=== PATIENT | female | born 1965 | race Two or more races ===

== ENCOUNTER 2020-01-05 21:07 | Inpatient (IN) | payer MEDICAID ==
[~2020-01-05] VITALS: Ht 162.6 cm; Wt 88.9 kg
[2020-01-05] MEDS ORDERED: SODIUM CHLORIDE 0.9% 1,000 ML IV ONE (23:23)
[2020-01-05] MEDS ORDERED: ONDANSETRON HCL 4MG/2ML INJ IV STA (23:23)
[2020-01-05] MEDS ORDERED: CEFTRIAXONE 1 G PREMIX 50 ML IV ONE (23:30)
[2020-01-05] MEDS ORDERED: AZITHROMYCIN 500 MG in DEXT 5% WATER 250 ML IV ONE (23:30)
[2020-01-06 00:36] LABS: BASOPHILS % 0.7 % (0.0-2.0); EOSINOPHILS % 0.1 % (0.0-5.0); HEMATOCRIT. 47.1 % (36.0-48.0); HEMOGLOBIN. 15.5 g/dL (12.0-16.0); LYMPHOCYTES % 28.2 % (20.0-50.0); MEAN CORPUSCULAR HEMOGLOBIN 28.7 pg (28.0-32.0); MEAN CORPUSCULAR VOLUME 87.2 fL (81.0-99.0); MONOCYTES % 6.6 % (2.0-8.0); NEUTROPHILS % 64.4 % (40.0-76.0); PLATELET 343 x1000/uL (130-400); RED CELL DISTRIBUTION WIDTH 15.3 % (11.6-14.6)
[2020-01-06 00:37] LABS: CHLORIDE 102 mEq/L (98-107)
[2020-01-06 01:35] LABS: CLARITY URINE CLEAR (CLEAR); COLOR URINE YELLOW (YELLOW); KETONES URINE 1+ (NEGATIVE); LEUKOCYTE ESTERASE URINE NEGATIVE (NEGATIVE); NITRITE URINE NEGATIVE (NEGATIVE); OCCULT BLOOD URINE NEGATIVE (NEGATIVE); PH URINE 5.5 (4.5-8.0); PROTEIN URINE NEGATIVE (NEGATIVE)
[2020-01-06 08:36] VITALS: BP 152/70
[2020-01-06 08:37] VITALS: BP 152/70
[2020-01-06] MEDS ORDERED: FENO134C PO (10:11)
[2020-01-06] MEDS ORDERED: METF-416 PO (10:11)
[2020-01-06] MEDS ORDERED: LISI40TA4 PO (10:11)
[2020-01-06] MEDS ORDERED: ASPI-1158 PO (10:11)
[2020-01-06] MEDS ORDERED: AMLO5TAB4 PO (10:11)
[2020-01-06] MEDS ORDERED: LEVO750T46 PO (10:11)
[2020-01-06] MEDS ORDERED: EMPA10TA PO (10:11)
[2020-01-06] MEDS ORDERED: GLIM4TAB36 PO (10:11)
[2020-01-06] MEDS ORDERED: FENO130C13 PO (10:11)
[2020-01-06] MEDS ORDERED: DEXTROSE 50% WATER 50ML SYRINGE IV PRN ×2 (11:00)
[2020-01-06] MEDS: BLOOD SUGAR DIAGNOSTIC STRIP TEST SCH ×3 (12:06→21:00)
[2020-01-06] MEDS: INSULIN LISPRO 100 UNITS/ML SUBCUT SCH ×3 (12:10→21:15)
[2020-01-06 12:15] VITALS: BP 154/68
[2020-01-06 16:15] VITALS: BP 166/78
[2020-01-06] MEDS: ASPIRIN 81MG EC TABLET PO SCH (18:59)
[2020-01-06] MEDS: AMLODIPINE 5MG TABLET PO SCH (18:59)
[2020-01-06 20:00] VITALS: BP 126/70
[2020-01-06] MEDS: FENOFIBRATE NANOCRYSTALLIZED 145MG TABLET PO SCH (20:52)
[2020-01-06] MEDS: LISINOPRIL 40MG TABLET PO SCH (21:06)
[2020-01-07] VITALS (7 sets, daily range): BP systolic 128–153; BP diastolic 58–74
[2020-01-07] MEDS: INSULIN LISPRO 100 UNITS/ML SUBCUT SCH ×3 (06:10→17:12)
[2020-01-07] MEDS: BLOOD SUGAR DIAGNOSTIC STRIP TEST SCH ×4 (06:10→21:00)
[2020-01-07] MEDS: AMLODIPINE 5MG TABLET PO SCH (08:22)
[2020-01-07] MEDS: LISINOPRIL 40MG TABLET PO SCH (08:23)
[2020-01-07] MEDS: FENOFIBRATE NANOCRYSTALLIZED 145MG TABLET PO SCH (08:23)
[2020-01-07] MEDS: ASPIRIN 81MG EC TABLET PO SCH (08:23)
[2020-01-07 09:39] LABS: BASOPHILS % 0.8 % (0.0-2.0); EOSINOPHILS % 1.1 % (0.0-5.0); HEMATOCRIT. 43.2 % (36.0-48.0); HEMOGLOBIN. 14.4 g/dL (12.0-16.0); LYMPHOCYTES % 30.8 % (20.0-50.0); MEAN CORPUSCULAR HEMOGLOBIN 28.8 pg (28.0-32.0); MEAN CORPUSCULAR VOLUME 86.1 fL (81.0-99.0); MEAN PLATELET VOLUME 8.3 fl (7.4-10.4); MONOCYTES % 6.1 % (2.0-8.0); NEUTROPHILS % 61.2 % (40.0-76.0); PLATELET 401 x1000/uL (130-400); RED BLOOD CELL COUNT 5.01 mill/uL (4.2-5.4); RED CELL DISTRIBUTION WIDTH 14.8 % (11.6-14.6)
[2020-01-07 09:58] LABS: CHLORIDE 103 mEq/L (98-107)
[2020-01-07 10:06] LABS: LDL CHOLESTEROL 90 mg/dL (5-100)
[2020-01-07 10:09] LABS: HDL CHOLESTEROL 37 mg/dL (40-59)
[2020-01-07] MEDS: ACETAMINOPHEN 325MG TABLET PO PRN (13:14)
[2020-01-08] VITALS: BP 142/59
[2020-01-08] MEDS: HYDROXYCHLOROQUINE SULFATE 200MG TABLET PO SCH ×3 (00:08→20:46)
[2020-01-08] MEDS: INSULIN LISPRO 100 UNITS/ML SUBCUT SCH ×5 (00:33→21:37)
[2020-01-08 04:00] VITALS: BP 138/60
[2020-01-08] MEDS: BLOOD SUGAR DIAGNOSTIC STRIP TEST SCH ×4 (06:16→21:37)
[2020-01-08 08:00] VITALS: BP 131/65
[2020-01-08] MEDS: ASPIRIN 81MG EC TABLET PO SCH (09:53)
[2020-01-08] MEDS: LISINOPRIL 40MG TABLET PO SCH (09:53)
[2020-01-08] MEDS: AMLODIPINE 5MG TABLET PO SCH (09:54)
[2020-01-08] MEDS: FENOFIBRATE NANOCRYSTALLIZED 145MG TABLET PO SCH (09:54)
[2020-01-08 11:02] LABS: BASOPHILS % 0.6 % (0.0-2.0); EOSINOPHILS % 1.5 % (0.0-5.0); HEMATOCRIT. 43.5 % (36.0-48.0); HEMOGLOBIN. 14.8 g/dL (12.0-16.0); LYMPHOCYTES % 27.6 % (20.0-50.0); MEAN CORPUSCULAR HEMOGLOBIN 29.3 pg (28.0-32.0); MEAN CORPUSCULAR VOLUME 86.4 fL (81.0-99.0); MEAN PLATELET VOLUME 8.3 fl (7.4-10.4); MONOCYTES % 5.9 % (2.0-8.0); NEUTROPHILS % 64.4 % (40.0-76.0); PLATELET 435 x1000/uL (130-400); RED BLOOD CELL COUNT 5.04 mill/uL (4.2-5.4); RED CELL DISTRIBUTION WIDTH 14.9 % (11.6-14.6)
[2020-01-08 11:10] LABS: CHLORIDE 104 mEq/L (98-107)
[2020-01-08 12:00] VITALS: BP 136/71
[2020-01-08 16:00] VITALS: BP 146/85
[2020-01-08] MEDS ORDERED: AZITHROMYCIN 500 MG TABLET PO NR (18:00)
[2020-01-08] MEDS: ZINC SULFATE 220 MG ( 50 ) CAPSULE PO SCH (18:59)
[2020-01-08 20:00] VITALS: BP 130/82
[2020-01-08] MEDS: ASCORBIC ACID 500 MG TABLET PO SCH (20:46)
[2020-01-09] VITALS: BP 142/76
[2020-01-09 04:00] VITALS: BP 139/74
[2020-01-09] MEDS: METFORMIN HCL 500MG TABLET PO SCH (06:40)
[2020-01-09] MEDS: GLIMEPIRIDE 2MG TABLET PO SCH (06:40)
[2020-01-09] MEDS: BLOOD SUGAR DIAGNOSTIC STRIP TEST SCH ×4 (06:51→21:00)
[2020-01-09] MEDS: INSULIN LISPRO 100 UNITS/ML SUBCUT SCH ×4 (07:22→22:19)
[2020-01-09 08:00] VITALS: BP 146/81
[2020-01-09] MEDS: ZINC SULFATE 220 MG ( 50 ) CAPSULE PO SCH (08:41)
[2020-01-09] MEDS: LISINOPRIL 40MG TABLET PO SCH (08:41)
[2020-01-09] MEDS: FENOFIBRATE NANOCRYSTALLIZED 145MG TABLET PO SCH (08:41)
[2020-01-09] MEDS: ASPIRIN 81MG EC TABLET PO SCH (08:41)
[2020-01-09] MEDS: AMLODIPINE 5MG TABLET PO SCH (08:41)
[2020-01-09] MEDS: ASCORBIC ACID 500 MG TABLET PO SCH (08:41)
[2020-01-09] MEDS: HYDROXYCHLOROQUINE SULFATE 200MG TABLET PO SCH ×2 (08:45→22:20)
[2020-01-09 12:00] VITALS: BP 100/65
[2020-01-09 16:00] VITALS: BP 121/71
[2020-01-09] MEDS: AZITHROMYCIN 500 MG TABLET PO SCH (16:37)
[2020-01-09 20:00] VITALS: BP 130/71
[2020-01-10] VITALS: BP 152/80
[2020-01-10 04:00] VITALS: BP 137/67
[2020-01-10] MEDS: BLOOD SUGAR DIAGNOSTIC STRIP TEST SCH ×4 (06:46→20:42)
[2020-01-10] MEDS: METFORMIN HCL 500MG TABLET PO SCH (06:51)
[2020-01-10] MEDS: INSULIN LISPRO 100 UNITS/ML SUBCUT SCH ×4 (06:52→21:15)
[2020-01-10] MEDS: GLIMEPIRIDE 2MG TABLET PO SCH (06:52)
[2020-01-10 06:56] LABS: CHLORIDE 103 mEq/L (98-107)
[2020-01-10 07:02] LABS: BASOPHILS % 0.6 % (0.0-2.0); EOSINOPHILS % 3.3 % (0.0-5.0); HEMATOCRIT. 44.9 % (36.0-48.0); HEMOGLOBIN. 14.9 g/dL (12.0-16.0); LYMPHOCYTES % 45.4 % (20.0-50.0); MEAN CORPUSCULAR HEMOGLOBIN 28.6 pg (28.0-32.0); MEAN CORPUSCULAR VOLUME 86.4 fL (81.0-99.0); MEAN PLATELET VOLUME 8.3 fl (7.4-10.4); NEUTROPHILS % 43.7 % (40.0-76.0); PLATELET 491 x1000/uL (130-400); RED CELL DISTRIBUTION WIDTH 14.9 % (11.6-14.6)
[2020-01-10 08:00] VITALS: BP 131/74
[2020-01-10] MEDS: ASCORBIC ACID 500 MG TABLET PO SCH (09:30)
[2020-01-10] MEDS: ZINC SULFATE 220 MG ( 50 ) CAPSULE PO SCH (09:30)
[2020-01-10] MEDS: HYDROXYCHLOROQUINE SULFATE 200MG TABLET PO SCH ×2 (09:30→20:24)
[2020-01-10] MEDS: AMLODIPINE 5MG TABLET PO SCH (09:30)
[2020-01-10] MEDS: FENOFIBRATE NANOCRYSTALLIZED 145MG TABLET PO SCH (09:30)
[2020-01-10] MEDS: LISINOPRIL 40MG TABLET PO SCH (09:30)
[2020-01-10] MEDS: ASPIRIN 81MG EC TABLET PO SCH (09:30)
[2020-01-10 12:00] VITALS: BP 121/73
[2020-01-10 16:00] VITALS: BP 128/71
[2020-01-10] MEDS: AZITHROMYCIN 500 MG TABLET PO SCH (17:39)
[2020-01-10 20:00] VITALS: BP 135/76
[2020-01-11] VITALS: BP 141/73
[2020-01-11 04:00] VITALS: BP 136/71
[2020-01-11] MEDS: METFORMIN HCL 500MG TABLET PO SCH (06:08)
[2020-01-11] MEDS: BLOOD SUGAR DIAGNOSTIC STRIP TEST SCH ×4 (06:08→21:13)
[2020-01-11] MEDS: GLIMEPIRIDE 2MG TABLET PO SCH (06:08)
[2020-01-11 08:00] VITALS: BP 134/80
[2020-01-11] MEDS: INSULIN LISPRO 100 UNITS/ML SUBCUT SCH ×4 (08:10→21:27)
[2020-01-11] MEDS: HYDROXYCHLOROQUINE SULFATE 200MG TABLET PO SCH ×2 (08:11→21:13)
[2020-01-11] MEDS: AMLODIPINE 5MG TABLET PO SCH (08:11)
[2020-01-11] MEDS: ASPIRIN 81MG EC TABLET PO SCH (08:11)
[2020-01-11] MEDS: FENOFIBRATE NANOCRYSTALLIZED 145MG TABLET PO SCH (08:11)
[2020-01-11] MEDS: LISINOPRIL 40MG TABLET PO SCH (08:11)
[2020-01-11] MEDS: ASCORBIC ACID 500 MG TABLET PO SCH (08:12)
[2020-01-11] MEDS: ZINC SULFATE 220 MG ( 50 ) CAPSULE PO SCH (08:12)
[2020-01-11 12:00] VITALS: BP 137/86
[2020-01-11 16:00] VITALS: BP 98/54
[2020-01-11] MEDS: AZITHROMYCIN 500 MG TABLET PO SCH (17:53)
[2020-01-11 20:00] VITALS: BP 130/69
[2020-01-11] MEDS: ACETAMINOPHEN 325MG TABLET PO PRN (21:13)
[2020-01-12] VITALS: BP 138/73
[2020-01-12 04:00] VITALS: BP 117/63
[2020-01-12] MEDS: METFORMIN HCL 500MG TABLET PO SCH (06:00)
[2020-01-12] MEDS: BLOOD SUGAR DIAGNOSTIC STRIP TEST SCH ×4 (06:00→22:35)
[2020-01-12] MEDS: GLIMEPIRIDE 2MG TABLET PO SCH (06:00)
[2020-01-12] MEDS: INSULIN LISPRO 100 UNITS/ML SUBCUT SCH ×4 (07:29→22:35)
[2020-01-12 08:00] VITALS: BP 146/77
[2020-01-12 08:20] LABS: HEMATOCRIT. 42.4 % (36.0-48.0); HEMOGLOBIN. 14.3 g/dL (12.0-16.0); MEAN PLATELET VOLUME 8.4 fl (7.4-10.4); PLATELET 510 x1000/uL (130-400); RED BLOOD CELL COUNT 4.94 mill/uL (4.2-5.4); RED CELL DISTRIBUTION WIDTH 14.4 % (11.6-14.6)
[2020-01-12 08:34] LABS: CHLORIDE 104 mEq/L (98-107)
[2020-01-12] MEDS: HYDROXYCHLOROQUINE SULFATE 200MG TABLET PO SCH ×2 (09:00→22:35)
[2020-01-12] MEDS: ASCORBIC ACID 500 MG TABLET PO SCH (09:04)
[2020-01-12] MEDS: ZINC SULFATE 220 MG ( 50 ) CAPSULE PO SCH (09:04)
[2020-01-12] MEDS: AMLODIPINE 5MG TABLET PO SCH (09:05)
[2020-01-12] MEDS: ASPIRIN 81MG EC TABLET PO SCH (09:05)
[2020-01-12] MEDS: FENOFIBRATE NANOCRYSTALLIZED 145MG TABLET PO SCH (09:05)
[2020-01-12] MEDS: LISINOPRIL 40MG TABLET PO SCH (09:05)
[2020-01-12 12:00] VITALS: BP 111/63
[2020-01-12 16:00] VITALS: BP 130/73
[2020-01-12] MEDS: AZITHROMYCIN 500 MG TABLET PO SCH (17:46)
[2020-01-12 20:00] VITALS: BP 131/71
[2020-01-12 23:15] LABS: PLATELET ESTIMATE INCREASED
[2020-01-13 04:00] VITALS: BP 107/61
[2020-01-13] MEDS: METFORMIN HCL 500MG TABLET PO SCH (06:05)
[2020-01-13] MEDS: GLIMEPIRIDE 2MG TABLET PO SCH ×2 (06:40→07:42)
[2020-01-13] MEDS: BLOOD SUGAR DIAGNOSTIC STRIP TEST SCH ×4 (07:27→21:00)
[2020-01-13 08:00] VITALS: BP 121/66
[2020-01-13 09:38] LABS: HEMATOCRIT. 44.9 % (36.0-48.0); HEMOGLOBIN. 14.8 g/dL (12.0-16.0); MEAN CORPUSCULAR HEMOGLOBIN 28.6 pg (28.0-32.0); MEAN CORPUSCULAR VOLUME 86.9 fL (81.0-99.0); MEAN PLATELET VOLUME 8.7 fl (7.4-10.4); PLATELET 493 x1000/uL (130-400); RED BLOOD CELL COUNT 5.17 mill/uL (4.2-5.4); RED CELL DISTRIBUTION WIDTH 14.8 % (11.6-14.6)
[2020-01-13] MEDS: ASCORBIC ACID 500 MG TABLET PO SCH (09:42)
[2020-01-13] MEDS: ZINC SULFATE 220 MG ( 50 ) CAPSULE PO SCH (09:42)
[2020-01-13] MEDS: ASPIRIN 81MG EC TABLET PO SCH (09:42)
[2020-01-13] MEDS: FENOFIBRATE NANOCRYSTALLIZED 145MG TABLET PO SCH (09:42)
[2020-01-13] MEDS: AMLODIPINE 5MG TABLET PO SCH (09:42)
[2020-01-13] MEDS: LISINOPRIL 40MG TABLET PO SCH (09:43)
[2020-01-13] MEDS: INSULIN LISPRO 100 UNITS/ML SUBCUT SCH ×4 (09:51→22:41)
[2020-01-13 09:57] LABS: CHLORIDE 105 mEq/L (98-107)
[2020-01-13 10:48] LABS: PLATELET ESTIMATE INCREASED
[2020-01-13 12:00] VITALS: BP 112/62
[2020-01-13 16:00] VITALS: BP 106/68
[2020-01-13 20:00] VITALS: BP 107/78
[2020-01-14] VITALS: BP 115/62
[2020-01-14 04:00] VITALS: BP 108/66
[2020-01-14] MEDS: BLOOD SUGAR DIAGNOSTIC STRIP TEST SCH ×4 (06:42→21:41)
[2020-01-14] MEDS: METFORMIN HCL 500MG TABLET PO SCH (06:52)
[2020-01-14] MEDS: INSULIN LISPRO 100 UNITS/ML SUBCUT SCH ×4 (06:54→21:49)
[2020-01-14 08:00] VITALS: BP 157/73
[2020-01-14] MEDS: ZINC SULFATE 220 MG ( 50 ) CAPSULE PO SCH (08:20)
[2020-01-14] MEDS: LISINOPRIL 40MG TABLET PO SCH (08:20)
[2020-01-14] MEDS: ASCORBIC ACID 500 MG TABLET PO SCH (08:20)
[2020-01-14] MEDS: AMLODIPINE 5MG TABLET PO SCH (08:20)
[2020-01-14] MEDS: FENOFIBRATE NANOCRYSTALLIZED 145MG TABLET PO SCH (08:20)
[2020-01-14] MEDS: ASPIRIN 81MG EC TABLET PO SCH (08:20)
[2020-01-14 12:00] VITALS: BP 103/64
[2020-01-14 16:00] VITALS: BP 110/65
[2020-01-14] MEDS ORDERED: ASCO500T20 PO (16:28)
[2020-01-14] MEDS ORDERED: ZINC220C2 PO (16:28)
[2020-01-14 20:00] VITALS: BP 106/74
[2020-01-15] VITALS (7 sets, daily range): BP systolic 113–142; BP diastolic 65–81
[2020-01-15] MEDS: BLOOD SUGAR DIAGNOSTIC STRIP TEST SCH ×3 (06:18→16:54)
[2020-01-15] MEDS: GLIMEPIRIDE 2MG TABLET PO SCH (06:39)
[2020-01-15] MEDS: INSULIN LISPRO 100 UNITS/ML SUBCUT SCH ×3 (06:39→17:53)
[2020-01-15] MEDS: METFORMIN HCL 500MG TABLET PO SCH (06:39)
[2020-01-15] MEDS: ASPIRIN 81MG EC TABLET PO SCH (10:14)
[2020-01-15] MEDS: ZINC SULFATE 220 MG ( 50 ) CAPSULE PO SCH (10:14)
[2020-01-15] MEDS: FENOFIBRATE NANOCRYSTALLIZED 145MG TABLET PO SCH (10:15)
[2020-01-15] MEDS: ASCORBIC ACID 500 MG TABLET PO SCH (10:15)
[2020-01-15] MEDS: AMLODIPINE 5MG TABLET PO SCH (10:40)
[2020-01-15] MEDS: LISINOPRIL 40MG TABLET PO SCH (10:40)
== END 2020-01-15 21:15 | disposition home or self-care (01) | DRG 720 ==
LOC: ER 22:00 → 7EST 01-06 00:35 → EDBEDREQ 01-06 00:37 → EDBEDREQDT 01-06 00:37 → EDBEDREQSVC 01-06 00:37 → EDBEDREQTM 01-06 00:37 → ENRESERV 01-06 07:31
PROVIDERS: ADMIT Internal Medicine; ATTEND Internal Medicine
DX: A41.89 Other specified sepsis (principal); U07.1 COVID-19; J96.00 Acute respiratory failure, unspecified whether with hypoxia or hypercapnia; J12.89 Other viral pneumonia; E11.9 Type 2 diabetes mellitus without complications; E78.00 Pure hypercholesterolemia, unspecified; E78.5 Hyperlipidemia, unspecified; I10 Essential (primary) hypertension; R81 Glycosuria; N20.0 Calculus of kidney; R82.4 Acetonuria; J40 Bronchitis, not specified as acute or chronic; Z78.9 Other specified health status; Z79.84 Long term (current) use of oral hypoglycemic drugs; Z87.442 Personal history of urinary calculi; Z87.891 Personal history of nicotine dependence
CPT/HCPCS: 36415; 71045; 80048; 80053; 80061; 81003; 82728; 82962; 83036; 83605; 83615; 83880; 84145; 84484; 85025; 86140; 87635; 87804; 93005; 96365; 96366; 96368; 96375; 99291; J0456; J0696; J1815; J2405; J7030; J7060

== ENCOUNTER 2020-02-08 14:21 | Emergency (ER) | payer MEDICAID ==
[~2020-02-08] VITALS: Ht 165.1 cm; Wt 99.8 kg
[~2020-02-08 14:21] MED LIST: AMLO5TAB4 PO; ASCO500T20 PO; ASPI-1158 PO; EMPA10TA PO; FENO134C PO; GLIM4TAB36 PO; LISI40TA4 PO; METF-416 PO; ZINC220C2 PO
[2020-02-08 15:44] VITALS: BP 140/73
== END 2020-02-08 15:46 | disposition home or self-care (01) ==
LOC: ER 14:21
DX: B97.29 Other coronavirus as the cause of diseases classified elsewhere (principal); R05 Cough; E11.9 Type 2 diabetes mellitus without complications; E78.00 Pure hypercholesterolemia, unspecified; I10 Essential (primary) hypertension; Z79.82 Long term (current) use of aspirin; Z79.899 Other long term (current) drug therapy
CPT/HCPCS: 71045; 99283

== ENCOUNTER 2021-11-10 23:48 | Emergency (ER) | payer MEDICAID ==
[~2021-11-10] VITALS: Ht 162.6 cm; Wt 91.0 kg
[~2021-11-10 23:48] MED LIST changes: -ASPI-1158 PO; +ASPI-1406 PO; +LISI40TA13 PO; -LISI40TA4 PO
[2021-11-11] MEDS ORDERED: OXYMETAZOLINE HCL NASAL SPRAY 15ML BOTHNSTRLS ONE (00:15)
[2021-11-11 01:23] VITALS: BP 114/60
== END 2021-11-11 01:24 | disposition home or self-care (01) ==
LOC: ER 23:48
DX: R04.0 Epistaxis (principal); E11.9 Type 2 diabetes mellitus without complications; I10 Essential (primary) hypertension; Z79.82 Long term (current) use of aspirin
CPT/HCPCS: 99283

== ENCOUNTER 2022-08-21 23:38 | Inpatient (IN) | payer MEDICAID ==
[~2022-08-21] VITALS: Ht 198.1 cm; Wt 94.3 kg
[~2022-08-21 23:38] MED LIST changes: -FENO134C PO; +FENO134C21 PO
[2022-08-22] VITALS (91 sets, daily range): BP systolic 80–157; BP diastolic 33–123
[2022-08-22] MEDS ORDERED: ONDANSETRON HCL 4MG/2ML INJ IV STA ×2 (00:06→01:21)
[2022-08-22] MEDS ORDERED: INSULIN REGULAR (HUMULIN R) 300UNITS/3ML VIAL SUBCUT ONE (00:15)
[2022-08-22] MEDS ORDERED: SODIUM CHLORIDE 0.9% 1,000 ML IV ONE ×3 (00:15→02:15)
[2022-08-22] MEDS ORDERED: VANCOMYCIN 1G PREMIX 200 ML IV ONE (00:15)
[2022-08-22] MEDS ORDERED: PIPERACILLIN/TAZ 3.375G PREMIX 50 ML IV ONE (00:15)
[2022-08-22 00:33] LABS: HEMATOCRIT. 44.2 % (36.0-48.0); HEMOGLOBIN. 13.4 g/dL (12.0-16.0); MEAN CORPUSCULAR HEMOGLOBIN 28.4 pg (28.0-32.0); MEAN CORPUSCULAR VOLUME 93.9 fL (81.0-99.0); MEAN PLATELET VOLUME 9.4 fl (7.4-10.4); PLATELET 407 x1000/uL (130-400); RED BLOOD CELL COUNT 4.71 mill/uL (4.2-5.4); RED CELL DISTRIBUTION WIDTH 16.6 % (11.6-14.6)
[2022-08-22 00:40] LABS: CHLORIDE 95 mEq/L (98-107)
[2022-08-22 00:42] LABS: INR 1.1; PROTHROMBIN TIME 11.4 sec (9.6-11.0)
[2022-08-22] MEDS ORDERED: VANCOMYCIN 1,000 MG in DEXT 5% WATER 250 ML IV NR ×2 (00:45→20:00)
[2022-08-22 01:14] LABS: ETHANOL BLOOD < 10 mg/dL
[2022-08-22] MEDS ORDERED: KCL 20MEQ/100ML PREMIX 100 ML IV ONE (01:30)
[2022-08-22] MEDS ORDERED: INSULIN REGULAR (DRIP) 100 UNITS in SODIUM CHLORIDE 0.9% 100 ML IV ONE (01:30)
[2022-08-22] MEDS ORDERED: POTASSIUM CHLORIDE 20MEQ TABLET SR PO ONE (01:30)
[2022-08-22 01:35] LABS: BETA HYDROXYBUTYRATE 14.3 mMol/L (0.0-0.3)
[2022-08-22 01:37] LABS: CLARITY URINE CLEAR (CLEAR); COLOR URINE YELLOW (YELLOW); KETONES URINE 4+ (NEGATIVE); LEUKOCYTE ESTERASE URINE NEGATIVE (NEGATIVE); NITRITE URINE NEGATIVE (NEGATIVE); OCCULT BLOOD URINE 2+ (NEGATIVE); PROTEIN URINE 2+ (NEGATIVE); SPECIFIC GRAVITY URINE 1.026 (1.005-1.030); UROBILINOGEN URINE 0.2 E.U./dL (0.2-1.0)
[2022-08-22 02:08] LABS: *AMPHETAMINES SCREEN URINE NEGATIVE (NEGATIVE); *BARBITURATES SCREEN URINE NEGATIVE (NEGATIVE); *BENZODIAZEPINES SCREEN URINE NEGATIVE (NEGATIVE); *COCAINE SCREEN URINE NEGATIVE (NEGATIVE); CANNABINOID URINE SCREEN NEGATIVE (NEGATIVE); METHADONE URINE SCREEN NEGATIVE (NEGATIVE); OPIATES URINE SCREEN NEGATIVE (NEGATIVE); PHENCYCLIDINE URINE SCREEN NEGATIVE (NEGATIVE)
[2022-08-22 02:17] LABS: BG BASE EXCESS -26.4 mmol/L (-2.0-2.0); BG CARBOXYHEMOGLOBIN 0.2 % (0.5-1.5); BG DEOXYHEMOGLOBIN 7.6 % (0.0-5.0); BG FRACTION INSPIRED OXYGEN 60; BG HCO3 ACT 5.4 mmol/L (22.0-26.0); BG METHEMOGLOBIN 0.3 % (0.0-1.5); BG OXYGEN SATURATION 92.4 % (92.0-98.5); BG OXYHEMOGLOBIN 91.9 % (94.0-97.0); BG PCO2 27.2 mmHg (35.0-45.0); BG PH 6.914 (7.350-7.450); BG PO2 81.2 mmHg (75.0-100.0); BG SAMPLE SITE RIGHT RADIAL; BG TOTAL HEMOGLOBIN 13.5 g/dL (12.0-18.0); BG VENT MODE MASK - SIMPLE
[2022-08-22 02:56] LABS: CHLORIDE 102 mEq/L (98-107)
[2022-08-22] MEDS ORDERED: DEXTROSE 50% WATER 50ML SYRINGE IV PRN ×3 (04:45→22:45)
[2022-08-22] MEDS ORDERED: INSULIN REGULAR (DRIP) 100 UNITS in SODIUM CHLORIDE 0.9% 100 ML IV NR (04:45)
[2022-08-22] MEDS ORDERED: BLOOD SUGAR DIAGNOSTIC STRIP TEST SCH (04:45)
[2022-08-22] MEDS ORDERED: SODIUM BICARBONATE 8.4% 1 MEQ/ML 50ML SYR IV NR ×2 (04:45→09:30)
[2022-08-22] MEDS ORDERED: NOREPINEPHRINE 8MG/250ML PMX 250 ML IV PRN (04:45)
[2022-08-22] MEDS: INSULIN REGULAR 100U/100ML PMX 100 ML IV SCH ×2 (05:15→08:45)
[2022-08-22 05:23] LABS: PLATELET ESTIMATE NORMAL
[2022-08-22] MEDS: BLOOD SUGAR DIAGNOSTIC STRIP TEST SCH ×19 (05:31→23:24)
[2022-08-22] MEDS ORDERED: INSULIN REGULAR (DRIP) 100 UNITS in SODIUM CHLORIDE 0.9% 99 ML IV SCH (06:00)
[2022-08-22] MEDS: NOREPINEPHRINE 8 MG in DEXTROSE 5% WATER 250 ML IV PRN ×2 (07:48→12:23)
[2022-08-22 08:48] LABS: BG BASE EXCESS -16.1 mmol/L (-2.0-2.0); BG CARBOXYHEMOGLOBIN 0.7 % (0.5-1.5); BG DEOXYHEMOGLOBIN 5.9 % (0.0-5.0); BG FRACTION INSPIRED OXYGEN 100; BG HCO3 ACT 11.1 mmol/L (22.0-26.0); BG METHEMOGLOBIN 0.1 % (0.0-1.5); BG OXYGEN SATURATION 94.1 % (92.0-98.5); BG OXYHEMOGLOBIN 93.3 % (94.0-97.0); BG PCO2 31.2 mmHg (35.0-45.0); BG PH 7.169 (7.350-7.450); BG PO2 67.5 mmHg (75.0-100.0); BG SAMPLE SITE RIGHT RADIAL; BG TOTAL HEMOGLOBIN 14.8 g/dL (12.0-18.0); BG VENT MODE MASK - NRB
[2022-08-22] MEDS ORDERED: PIOG15TA66 PO (09:40)
[2022-08-22] MEDS ORDERED: ATEN-42 PO (09:40)
[2022-08-22] MEDS ORDERED: EMPA10TA PO (09:40)
[2022-08-22] MEDS ORDERED: GABA800T97 PO (09:40)
[2022-08-22] MEDS ORDERED: MAGN500C4 PO (09:40)
[2022-08-22] MEDS ORDERED: METF-416 PO (09:40)
[2022-08-22] MEDS ORDERED: ATOR40TA70 MT (09:40)
[2022-08-22] MEDS ORDERED: ONDANSETRON HCL 4MG/2ML INJ IV PRN (10:00)
[2022-08-22] MEDS ORDERED: SODIUM BICARBONATE 100 MEQ in SODIUM CHLORIDE 0.45% 1,000 ML IV SCH (10:30)
[2022-08-22 11:06] LABS: BG BASE EXCESS -6.7 mmol/L (-2.0-2.0); BG CARBOXYHEMOGLOBIN 0.3 % (0.5-1.5); BG DEOXYHEMOGLOBIN 8.2 % (0.0-5.0); BG FRACTION INSPIRED OXYGEN 100; BG HCO3 ACT 18.4 mmol/L (22.0-26.0); BG METHEMOGLOBIN 0.3 % (0.0-1.5); BG OXYGEN SATURATION 91.8 % (92.0-98.5); BG OXYHEMOGLOBIN 91.2 % (94.0-97.0); BG PCO2 35.5 mmHg (35.0-45.0); BG PH 7.332 (7.350-7.450); BG PO2 54.3 mmHg (75.0-100.0); BG SAMPLE SITE RIGHT RADIAL; BG TOTAL HEMOGLOBIN 14.2 g/dL (12.0-18.0); BG VENT MODE MASK - NRB
[2022-08-22] MEDS ORDERED: POTASSIUM CHLORIDE INJ 60 MEQ in DEXT 5% WATER 500 ML IV NR (11:30)
[2022-08-22] MEDS: PANTOPRAZOLE SODIUM 40 MG/VIAL IV SCH ×2 (11:53→20:55)
[2022-08-22 12:16] LABS: HEMATOCRIT 36.7 % (36.0-48.0); HEMOGLOBIN 12.2 g/dL (12.0-16.0); MEAN CORPUSCULAR HEMOGLOBIN 28.8 pg (28.0-32.0); MEAN CORPUSCULAR VOLUME 86.4 fL (81.0-99.0); PLATELET 253 x1000/uL (130-400); RED BLOOD CELL COUNT 4.25 mill/uL (4.2-5.4); RED CELL DISTRIBUTION WIDTH 15.6 % (11.6-14.6)
[2022-08-22 12:25] LABS: CHLORIDE 110 mEq/L (98-107)
[2022-08-22] MEDS ORDERED: MAGNESIUM 2 G PREMIX 50 ML IV NR (12:45)
[2022-08-22 13:09] LABS: PHOSPHORUS 0.5 mg/dL (2.5-4.9)
[2022-08-22] MEDS ORDERED: SODIUM CHLORIDE 0.45% 1,000 ML IV SCH (13:30)
[2022-08-22 14:01] LABS: BG BASE EXCESS 0.3 mmol/L (-2.0-2.0); BG CARBOXYHEMOGLOBIN 0.3 % (0.5-1.5); BG DEOXYHEMOGLOBIN 3.8 % (0.0-5.0); BG FRACTION INSPIRED OXYGEN 100; BG HCO3 ACT 23.9 mmol/L (22.0-26.0); BG METHEMOGLOBIN 0.2 % (0.0-1.5); BG OXYGEN SATURATION 96.2 % (92.0-98.5); BG OXYHEMOGLOBIN 95.7 % (94.0-97.0); BG PCO2 35.6 mmHg (35.0-45.0); BG PH 7.445 (7.350-7.450); BG PO2 69.7 mmHg (75.0-100.0); BG SAMPLE SITE LEFT RADIAL; BG TOTAL HEMOGLOBIN 13.8 g/dL (12.0-18.0); BG VENT MODE VAPOTHERM
[2022-08-22] MEDS ORDERED: DEXT 5%/0.45% NACL KCL 10MEQ/L 1,000 ML IV SCH (14:30)
[2022-08-22] MEDS ORDERED: POTASSIUM PHOS,M-BASIC-D-BASIC 20 MMOL in DEXT 5% WATER 243.3333 ML IV NR (15:00)
[2022-08-22] MEDS: DEXT 5%/0.45% NACL KCL 20MEQ/L 1,000 ML IV SCH ×2 (15:19→22:53)
[2022-08-22 15:45] LABS: BG BASE EXCESS -0.9 mmol/L (-2.0-2.0); BG CARBOXYHEMOGLOBIN 0.3 % (0.5-1.5); BG DEOXYHEMOGLOBIN 1.8 % (0.0-5.0); BG FRACTION INSPIRED OXYGEN 100; BG HCO3 ACT 22.6 mmol/L (22.0-26.0); BG METHEMOGLOBIN 0.1 % (0.0-1.5); BG OXYGEN SATURATION 98.2 % (92.0-98.5); BG OXYHEMOGLOBIN 97.8 % (94.0-97.0); BG PH 7.441 (7.350-7.450); BG SAMPLE SITE RIGHT RADIAL; BG TOTAL HEMOGLOBIN 13.5 g/dL (12.0-18.0); BG TOTAL RESPIRATORY RATE 20 b/min; BG VENT MODE VENT - AC
[2022-08-22] MEDS ORDERED: IPRATROPIUM/ALBUTEROL 0.5-3(2.5)MG/3ML NEB HHN PRN (16:00)
[2022-08-22] MEDS: IPRATROPIUM/ALBUTEROL 0.5-3(2.5)MG/3ML NEB HHN SCH ×2 (16:18→20:32)
[2022-08-22] MEDS: ACETAMINOPHEN 325MG TABLET PO PRN ×2 (16:26→18:34)
[2022-08-22] MEDS ORDERED: FENTANYL 2500MCG/250ML PMX 250 ML IV PRN (16:30)
[2022-08-22] MEDS ORDERED: NOREPINEPHRINE 32 MG in DEXT 5% WATER 218 ML IV PRN (17:30)
[2022-08-22 18:17] LABS: CHLORIDE 118 mEq/L (98-107)
[2022-08-22] MEDS: FENTANYL CITRATE/PF 2,500 MCG in SODIUM CHLORIDE 0.9% 200 ML IV PRN (18:22)
[2022-08-22] MEDS: PIPERACILLIN/TAZOBACTAM 3.375 G in DEXTROSE 5% WATER 50 ML IV SCH ×2 (18:24→23:23)
[2022-08-22 21:13] LABS: CHLORIDE 120 mEq/L (98-107)
[2022-08-22] MEDS ORDERED: POTASSIUM CHLORIDE INJ 40 MEQ in DEXT 5% WATER 250 ML IV ONE (22:45)
[2022-08-22] MEDS: KCL 20MEQ/100ML X 2 FOR TOTAL KCL 40MEQ/200ML IV SCH (23:23)
[2022-08-22] MEDS: INSULIN LISPRO 100 UNITS/ML SUBCUT SCH (23:24)
[2022-08-22] MEDS: INSULIN GLARGINE 100 UNITS/ML SUBCUT SCH (23:24)
[2022-08-23] VITALS (80 sets, daily range): BP systolic 83–177; BP diastolic 43–81
[2022-08-23] MEDS ORDERED: BLOOD SUGAR DIAGNOSTIC STRIP TEST SCH
[2022-08-23] MEDS: ACETAMINOPHEN 325MG TABLET PO PRN ×3 (00:04→21:34)
[2022-08-23] MEDS: IPRATROPIUM/ALBUTEROL 0.5-3(2.5)MG/3ML NEB HHN SCH ×7 (00:23→23:49)
[2022-08-23] MEDS: ACETYLCYSTEINE 200MG/ML 20% VIAL 4ML INH SCH ×4 (00:24→23:48)
[2022-08-23] MEDS: KCL 20MEQ/100ML X 2 FOR TOTAL KCL 40MEQ/200ML IV SCH (01:55)
[2022-08-23] MEDS: INSULIN LISPRO 100 UNITS/ML SUBCUT SCH ×5 (04:51→20:45)
[2022-08-23] MEDS: BLOOD SUGAR DIAGNOSTIC STRIP TEST SCH ×5 (04:51→20:44)
[2022-08-23] MEDS: PIPERACILLIN/TAZOBACTAM 3.375 G in DEXTROSE 5% WATER 50 ML IV SCH ×3 (06:27→21:28)
[2022-08-23] MEDS: DEXT 5%/0.45% NACL KCL 20MEQ/L 1,000 ML IV SCH (06:28)
[2022-08-23 07:40] LABS: BASOPHILS % 0.2 % (0.0-2.0); HEMOGLOBIN. 12.7 g/dL (12.0-16.0); LYMPHOCYTES % 22.7 % (20.0-50.0); MEAN CORPUSCULAR HEMOGLOBIN 28.4 pg (28.0-32.0); MEAN PLATELET VOLUME 9.3 fl (7.4-10.4); MONOCYTES % 5.3 % (2.0-8.0); NEUTROPHILS % 71.8 % (40.0-76.0); PLATELET 244 x1000/uL (130-400); RED BLOOD CELL COUNT 4.48 mill/uL (4.2-5.4); RED CELL DISTRIBUTION WIDTH 16.1 % (11.6-14.6)
[2022-08-23] MEDS: PANTOPRAZOLE SODIUM 40 MG/VIAL IV SCH ×2 (08:28→21:28)
[2022-08-23 09:11] LABS: BG BASE EXCESS -6.4 mmol/L (-2.0-2.0); BG CARBOXYHEMOGLOBIN 0.3 % (0.5-1.5); BG DEOXYHEMOGLOBIN 3.1 % (0.0-5.0); BG FRACTION INSPIRED OXYGEN 80; BG HCO3 ACT 18.3 mmol/L (22.0-26.0); BG METHEMOGLOBIN 0.3 % (0.0-1.5); BG OXYGEN SATURATION 96.9 % (92.0-98.5); BG OXYHEMOGLOBIN 96.3 % (94.0-97.0); BG PCO2 33.9 mmHg (35.0-45.0); BG SAMPLE SITE RIGHT RADIAL; BG TOTAL HEMOGLOBIN 12.5 g/dL (12.0-18.0); BG VENT MODE VENT - AC
[2022-08-23] MEDS: ENOXAPARIN 40MG/0.4ML SYR SUBCUT SCH (09:47)
[2022-08-23 09:55] LABS: CHLORIDE 119 mEq/L (98-107)
[2022-08-23 10:03] LABS: PHOSPHORUS 2.6 mg/dL (2.5-4.9)
[2022-08-23] MEDS: PROPOFOL 10MG/ML 100ML 100 ML IV PRN ×3 (11:23→20:41)
[2022-08-23] MEDS: VANCOMYCIN 750MG PREMIX 150 ML IV SCH (13:32)
[2022-08-23] MEDS: SODIUM CHLORIDE 0.45% 1,000 ML IV SCH ×2 (13:32→21:28)
[2022-08-23] MEDS: AZITHROMYCIN 500 MG in DEXT 5% WATER 250 ML IV SCH (21:28)
[2022-08-23] MEDS: INSULIN GLARGINE 100 UNITS/ML SUBCUT SCH (21:32)
[2022-08-23] MEDS: FENTANYL CITRATE/PF 2,500 MCG in SODIUM CHLORIDE 0.9% 200 ML IV PRN (21:36)
[2022-08-24] VITALS (97 sets, daily range): BP systolic 81–151; BP diastolic 40–96
[2022-08-24] MEDS: BLOOD SUGAR DIAGNOSTIC STRIP TEST SCH ×6 (00:11→20:00)
[2022-08-24] MEDS: VANCOMYCIN 750MG PREMIX 150 ML IV SCH ×2 (00:11→12:19)
[2022-08-24] MEDS: INSULIN LISPRO 100 UNITS/ML SUBCUT SCH ×6 (00:16→21:26)
[2022-08-24] MEDS: PROPOFOL 10MG/ML 100ML 100 ML IV PRN (01:33)
[2022-08-24] MEDS: IPRATROPIUM/ALBUTEROL 0.5-3(2.5)MG/3ML NEB HHN SCH ×5 (03:52→20:26)
[2022-08-24] MEDS: SODIUM CHLORIDE 0.45% 1,000 ML IV SCH (05:00)
[2022-08-24] MEDS: ACETYLCYSTEINE 200MG/ML 20% VIAL 4ML INH SCH ×2 (06:00→14:00)
[2022-08-24 06:07] LABS: BASOPHILS % 0.1 % (0.0-2.0); EOSINOPHILS % 0.3 % (0.0-5.0); HEMATOCRIT. 35.5 % (36.0-48.0); HEMOGLOBIN. 11.8 g/dL (12.0-16.0); MEAN CORPUSCULAR HEMOGLOBIN 28.7 pg (28.0-32.0); MEAN PLATELET VOLUME 9.3 fl (7.4-10.4); MONOCYTES % 4.5 % (2.0-8.0); NEUTROPHILS % 74.1 % (40.0-76.0); PLATELET 213 x1000/uL (130-400); RED BLOOD CELL COUNT 4.13 mill/uL (4.2-5.4); RED CELL DISTRIBUTION WIDTH 16.3 % (11.6-14.6)
[2022-08-24] MEDS: PIPERACILLIN/TAZOBACTAM 3.375 G in DEXTROSE 5% WATER 50 ML IV SCH ×3 (06:20→21:25)
[2022-08-24 08:28] LABS: CHLORIDE 119 mEq/L (98-107)
[2022-08-24 08:36] LABS: PHOSPHORUS 1.9 mg/dL (2.5-4.9)
[2022-08-24 08:40] LABS: BG BASE EXCESS -0.9 mmol/L (-2.0-2.0); BG CARBOXYHEMOGLOBIN 0.4 % (0.5-1.5); BG DEOXYHEMOGLOBIN 4.5 % (0.0-5.0); BG FRACTION INSPIRED OXYGEN 55; BG HCO3 ACT 23.2 mmol/L (22.0-26.0); BG METHEMOGLOBIN 0.2 % (0.0-1.5); BG OXYGEN SATURATION 95.5 % (92.0-98.5); BG OXYHEMOGLOBIN 94.9 % (94.0-97.0); BG PCO2 36.6 mmHg (35.0-45.0); BG PO2 72.2 mmHg (75.0-100.0); BG SAMPLE SITE RIGHT RADIAL; BG TOTAL HEMOGLOBIN 12.1 g/dL (12.0-18.0); BG VENT MODE VENT - AC
[2022-08-24] MEDS: ENOXAPARIN 40MG/0.4ML SYR SUBCUT SCH (08:57)
[2022-08-24] MEDS: PANTOPRAZOLE SODIUM 40 MG/VIAL IV SCH ×2 (08:58→21:24)
[2022-08-24] MEDS: FENTANYL CITRATE/PF 2,500 MCG in SODIUM CHLORIDE 0.9% 200 ML IV PRN (08:58)
[2022-08-24] MEDS: ACETAMINOPHEN 325MG TABLET PO PRN (12:20)
[2022-08-24] MEDS ORDERED: POTASSIUM PHOS,M-BASIC-D-BASIC 20 MMOL in DEXT 5% WATER 243.3333 ML IV NR (12:30)
[2022-08-24] MEDS: MIDAZOLAM HCL 100 MG in SODIUM CHLORIDE 0.9% 80 ML IV PRN (13:11)
[2022-08-24] MEDS: AZITHROMYCIN 500 MG in DEXT 5% WATER 250 ML IV SCH (21:25)
[2022-08-24] MEDS: INSULIN GLARGINE 100 UNITS/ML SUBCUT SCH (21:25)
[2022-08-25] VITALS (98 sets, daily range): BP systolic 87–178; BP diastolic 38–131
[2022-08-25] MEDS: MICAFUNGIN 100 MG in SODIUM CHLORIDE 0.9% 100 ML IV SCH (00:02)
[2022-08-25] MEDS: BLOOD SUGAR DIAGNOSTIC STRIP TEST SCH ×6 (00:02→20:00)
[2022-08-25] MEDS: VANCOMYCIN 750MG PREMIX 150 ML IV SCH (00:03)
[2022-08-25] MEDS: INSULIN LISPRO 100 UNITS/ML SUBCUT SCH ×6 (00:03→21:46)
[2022-08-25] MEDS: FENTANYL CITRATE/PF 2,500 MCG in SODIUM CHLORIDE 0.9% 200 ML IV PRN ×2 (00:08→14:35)
[2022-08-25] MEDS: IPRATROPIUM/ALBUTEROL 0.5-3(2.5)MG/3ML NEB HHN SCH ×6 (00:55→19:57)
[2022-08-25] MEDS: ACETYLCYSTEINE 200MG/ML 20% VIAL 4ML INH SCH ×4 (00:55→21:44)
[2022-08-25] MEDS: PIPERACILLIN/TAZOBACTAM 3.375 G in DEXTROSE 5% WATER 50 ML IV SCH ×3 (05:04→21:46)
[2022-08-25 06:08] LABS: BASOPHILS % 0.2 % (0.0-2.0); EOSINOPHILS % 0.4 % (0.0-5.0); HEMATOCRIT. 34.4 % (36.0-48.0); HEMOGLOBIN. 11.5 g/dL (12.0-16.0); LYMPHOCYTES % 30.2 % (20.0-50.0); MEAN CORPUSCULAR HEMOGLOBIN 28.6 pg (28.0-32.0); MEAN CORPUSCULAR VOLUME 85.4 fL (81.0-99.0); MEAN PLATELET VOLUME 9.3 fl (7.4-10.4); MONOCYTES % 5.7 % (2.0-8.0); NEUTROPHILS % 63.5 % (40.0-76.0); PLATELET 194 x1000/uL (130-400); RED BLOOD CELL COUNT 4.02 mill/uL (4.2-5.4); RED CELL DISTRIBUTION WIDTH 15.9 % (11.6-14.6)
[2022-08-25 06:17] LABS: CHLORIDE 121 mEq/L (98-107)
[2022-08-25 06:31] LABS: HDL CHOLESTEROL 10 mg/dL (40-59); LDL CHOLESTEROL 25 mg/dL (5-100)
[2022-08-25] MEDS: PANTOPRAZOLE SODIUM 40 MG/VIAL IV SCH ×2 (08:43→21:44)
[2022-08-25] MEDS: ENOXAPARIN 40MG/0.4ML SYR SUBCUT SCH (08:44)
[2022-08-25 08:52] LABS: BG BASE EXCESS 4.1 mmol/L (-2.0-2.0); BG CARBOXYHEMOGLOBIN 0.3 % (0.5-1.5); BG DEOXYHEMOGLOBIN 3.1 % (0.0-5.0); BG FRACTION INSPIRED OXYGEN 55; BG HCO3 ACT 27.9 mmol/L (22.0-26.0); BG METHEMOGLOBIN 0.3 % (0.0-1.5); BG OXYGEN SATURATION 96.9 % (92.0-98.5); BG OXYHEMOGLOBIN 96.3 % (94.0-97.0); BG PH 7.473 (7.350-7.450); BG SAMPLE SITE RIGHT RADIAL; BG TOTAL HEMOGLOBIN 11.7 g/dL (12.0-18.0); BG VENT MODE VENT - AC
[2022-08-25] MEDS: DEXTROSE 5% WATER 1,000 ML IV SCH (10:22)
[2022-08-25] MEDS: ACETAMINOPHEN 325MG TABLET PO PRN (11:53)
[2022-08-25] MEDS ORDERED: VANCOMYCIN 1,000 MG in DEXT 5% WATER 250 ML IV SCH (12:00)
[2022-08-25] MEDS: LACTULOSE 20G/30ML UDC NG SCH (15:20)
[2022-08-25] MEDS: METOCLOPRAMIDE HCL 10MG/2ML VIAL IV SCH (17:49)
[2022-08-25] MEDS: MIDAZOLAM HCL 100 MG in SODIUM CHLORIDE 0.9% 80 ML IV PRN (19:13)
[2022-08-25] MEDS: INSULIN GLARGINE 100 UNITS/ML SUBCUT SCH (21:45)
[2022-08-25] MEDS: AZITHROMYCIN 500 MG in DEXT 5% WATER 250 ML IV SCH (21:47)
[2022-08-26] VITALS (82 sets, daily range): BP systolic 104–176; BP diastolic 64–128
[2022-08-26] MEDS: ACETYLCYSTEINE 200MG/ML 20% VIAL 4ML INH SCH ×3 (00:29→16:58)
[2022-08-26] MEDS: IPRATROPIUM/ALBUTEROL 0.5-3(2.5)MG/3ML NEB HHN SCH ×5 (00:29→21:16)
[2022-08-26] MEDS: BLOOD SUGAR DIAGNOSTIC STRIP TEST SCH ×6 (00:53→20:00)
[2022-08-26] MEDS: MICAFUNGIN 100 MG in SODIUM CHLORIDE 0.9% 100 ML IV SCH ×2 (00:53→22:10)
[2022-08-26] MEDS: METOCLOPRAMIDE HCL 10MG/2ML VIAL IV SCH ×4 (00:53→17:16)
[2022-08-26] MEDS: INSULIN LISPRO 100 UNITS/ML SUBCUT SCH ×6 (00:55→21:01)
[2022-08-26] MEDS: ACETAMINOPHEN 325MG TABLET PO PRN (01:23)
[2022-08-26] MEDS: DEXTROSE 5% WATER 1,000 ML IV SCH (05:34)
[2022-08-26] MEDS: PIPERACILLIN/TAZOBACTAM 3.375 G in DEXTROSE 5% WATER 50 ML IV SCH ×3 (05:34→22:10)
[2022-08-26 06:05] LABS: CHLORIDE 121 mEq/L (98-107)
[2022-08-26 06:13] LABS: HEMATOCRIT. 33.5 % (36.0-48.0); HEMOGLOBIN. 11.1 g/dL (12.0-16.0); MEAN CORPUSCULAR HEMOGLOBIN 28.2 pg (28.0-32.0); MEAN CORPUSCULAR VOLUME 85.4 fL (81.0-99.0); MEAN PLATELET VOLUME 9.7 fl (7.4-10.4); PLATELET 210 x1000/uL (130-400); RED BLOOD CELL COUNT 3.92 mill/uL (4.2-5.4); RED CELL DISTRIBUTION WIDTH 16.2 % (11.6-14.6)
[2022-08-26] MEDS: FENTANYL CITRATE/PF 2,500 MCG in SODIUM CHLORIDE 0.9% 200 ML IV PRN (07:40)
[2022-08-26 08:20] LABS: BG BASE EXCESS 3.5 mmol/L (-2.0-2.0); BG CARBOXYHEMOGLOBIN 0.3 % (0.5-1.5); BG DEOXYHEMOGLOBIN 6.5 % (0.0-5.0); BG FRACTION INSPIRED OXYGEN 40; BG HCO3 ACT 26.5 mmol/L (22.0-26.0); BG METHEMOGLOBIN 0.2 % (0.0-1.5); BG OXYGEN SATURATION 93.5 % (92.0-98.5); BG PCO2 34.4 mmHg (35.0-45.0); BG PH 7.504 (7.350-7.450); BG PO2 64.2 mmHg (75.0-100.0); BG SAMPLE SITE RIGHT RADIAL; BG TOTAL HEMOGLOBIN 11.5 g/dL (12.0-18.0); BG VENT MODE VENT - AC
[2022-08-26] MEDS ORDERED: VANCOMYCIN 1,000 MG in DEXT 5% WATER 250 ML IV SCH (09:00)
[2022-08-26] MEDS: PANTOPRAZOLE SODIUM 40 MG/VIAL IV SCH ×2 (09:00→21:00)
[2022-08-26] MEDS: ENOXAPARIN 40MG/0.4ML SYR SUBCUT SCH (09:00)
[2022-08-26] MEDS: LACTULOSE 20G/30ML UDC NG SCH (09:00)
[2022-08-26 11:49] LABS: BG BASE EXCESS 4.4 mmol/L (-2.0-2.0); BG FRACTION INSPIRED OXYGEN 40; BG METHEMOGLOBIN 0.2 % (0.0-1.5); BG OXYHEMOGLOBIN 93.8 % (94.0-97.0); BG PCO2 43.1 mmHg (35.0-45.0); BG PH 7.446 (7.350-7.450); BG PO2 70.6 mmHg (75.0-100.0); BG SAMPLE SITE LEFT RADIAL; BG TOTAL HEMOGLOBIN 12.6 g/dL (12.0-18.0); BG VENT MODE VENT - CPAP
[2022-08-26] MEDS ORDERED: BISACODYL 10MG SUPP PR NR (12:15)
[2022-08-26 14:57] LABS: PLATELET ESTIMATE NORMAL
[2022-08-26] MEDS ORDERED: ONDANSETRON HCL 4MG/2ML INJ IV PRN (15:30)
[2022-08-26] MEDS: AZITHROMYCIN 500 MG in DEXT 5% WATER 250 ML IV SCH (21:05)
[2022-08-26] MEDS: INSULIN GLARGINE 100 UNITS/ML SUBCUT SCH (22:17)
[2022-08-27] VITALS (19 sets, daily range): BP systolic 130–150; BP diastolic 66–86
[2022-08-27] MEDS: DEXTROSE 5% WATER 1,000 ML IV SCH (00:30)
[2022-08-27] MEDS: METOCLOPRAMIDE HCL 10MG/2ML VIAL IV SCH ×2 (00:30→05:32)
[2022-08-27] MEDS: INSULIN LISPRO 100 UNITS/ML SUBCUT SCH ×6 (00:35→21:18)
[2022-08-27] MEDS: IPRATROPIUM/ALBUTEROL 0.5-3(2.5)MG/3ML NEB HHN SCH ×6 (01:07→20:18)
[2022-08-27] MEDS: ACETYLCYSTEINE 200MG/ML 20% VIAL 4ML INH SCH ×3 (01:08→15:22)
[2022-08-27] MEDS: BLOOD SUGAR DIAGNOSTIC STRIP TEST SCH ×5 (03:32→20:53)
[2022-08-27] MEDS: PIPERACILLIN/TAZOBACTAM 3.375 G in DEXTROSE 5% WATER 50 ML IV SCH ×2 (05:32→14:14)
[2022-08-27 05:59] LABS: HEMATOCRIT. 33.7 % (36.0-48.0); HEMOGLOBIN. 11.2 g/dL (12.0-16.0); MEAN CORPUSCULAR HEMOGLOBIN 28.6 pg (28.0-32.0); MEAN CORPUSCULAR VOLUME 86.2 fL (81.0-99.0); MEAN PLATELET VOLUME 9.7 fl (7.4-10.4); PLATELET 237 x1000/uL (130-400); RED BLOOD CELL COUNT 3.91 mill/uL (4.2-5.4); RED CELL DISTRIBUTION WIDTH 15.5 % (11.6-14.6)
[2022-08-27 06:15] LABS: CHLORIDE 117 mEq/L (98-107)
[2022-08-27] MEDS ORDERED: POTASSIUM CHLORIDE 20MEQ/PACKET PO NR (07:15)
[2022-08-27 08:11] LABS: BG BASE EXCESS 4.1 mmol/L (-2.0-2.0); BG CARBOXYHEMOGLOBIN 0.3 % (0.5-1.5); BG DEOXYHEMOGLOBIN 7.4 % (0.0-5.0); BG FRACTION INSPIRED OXYGEN 40; BG HCO3 ACT 26.8 mmol/L (22.0-26.0); BG METHEMOGLOBIN 0.3 % (0.0-1.5); BG OXYGEN SATURATION 92.6 % (92.0-98.5); BG PCO2 33.3 mmHg (35.0-45.0); BG PH 7.523 (7.350-7.450); BG PO2 60.2 mmHg (75.0-100.0); BG SAMPLE SITE RIGHT RADIAL; BG TOTAL HEMOGLOBIN 11.5 g/dL (12.0-18.0); BG VENT MODE NASAL CANNULA
[2022-08-27] MEDS: PANTOPRAZOLE SODIUM 40 MG/VIAL IV SCH (08:54)
[2022-08-27] MEDS: ENOXAPARIN 40MG/0.4ML SYR SUBCUT SCH (08:54)
[2022-08-27] MEDS: LACTULOSE 20G/30ML UDC NG SCH (08:56)
[2022-08-27 09:51] LABS: PLATELET ESTIMATE NORMAL
[2022-08-27] MEDS: INSULIN GLARGINE 100 UNITS/ML SUBCUT SCH (23:07)
[2022-08-27] MEDS: AZITHROMYCIN 500 MG in DEXT 5% WATER 250 ML IV SCH (23:19)
[2022-08-28] VITALS (7 sets, daily range): BP systolic 138–161; BP diastolic 77–96
[2022-08-28] MEDS: IPRATROPIUM/ALBUTEROL 0.5-3(2.5)MG/3ML NEB HHN SCH ×6 (00:43→21:07)
[2022-08-28] MEDS: BLOOD SUGAR DIAGNOSTIC STRIP TEST SCH ×6 (01:27→21:38)
[2022-08-28] MEDS: MICAFUNGIN 100 MG in SODIUM CHLORIDE 0.9% 100 ML IV SCH (01:29)
[2022-08-28] MEDS: INSULIN LISPRO 100 UNITS/ML SUBCUT SCH ×6 (01:35→21:38)
[2022-08-28 08:24] LABS: HEMATOCRIT. 34.2 % (36.0-48.0); HEMOGLOBIN. 11.3 g/dL (12.0-16.0); MEAN CORPUSCULAR HEMOGLOBIN 28.3 pg (28.0-32.0); MEAN CORPUSCULAR VOLUME 85.4 fL (81.0-99.0); MEAN PLATELET VOLUME 9.1 fl (7.4-10.4); PLATELET 299 x1000/uL (130-400); RED CELL DISTRIBUTION WIDTH 15.1 % (11.6-14.6)
[2022-08-28 08:43] LABS: CHLORIDE 111 mEq/L (98-107)
[2022-08-28 08:52] LABS: CREATINE KINASE 39 IU/L (26-192); PHOSPHORUS 2.8 mg/dL (2.5-4.9)
[2022-08-28] MEDS: ENOXAPARIN 40MG/0.4ML SYR SUBCUT SCH (09:05)
[2022-08-28 10:50] LABS: PLATELET ESTIMATE NORMAL
[2022-08-28] MEDS ORDERED: DEXTROSE 50% WATER 50ML SYRINGE IV PRN (11:30)
[2022-08-28] MEDS: ZOLPIDEM TARTRATE 5MG TABLET PO PRN (21:36)
[2022-08-28] MEDS: INSULIN GLARGINE 100 UNITS/ML SUBCUT SCH (21:37)
[2022-08-29] VITALS: BP 136/80
[2022-08-29] MEDS: MICAFUNGIN 100 MG in SODIUM CHLORIDE 0.9% 100 ML IV SCH (00:09)
[2022-08-29 04:00] VITALS: BP 148/77
[2022-08-29] MEDS: IPRATROPIUM/ALBUTEROL 0.5-3(2.5)MG/3ML NEB HHN SCH ×5 (04:03→20:27)
[2022-08-29] MEDS: BLOOD SUGAR DIAGNOSTIC STRIP TEST SCH ×4 (06:57→20:42)
[2022-08-29 08:00] VITALS: BP 150/62
[2022-08-29 08:01] LABS: BASOPHILS % 0.2 % (0.0-2.0); EOSINOPHILS % 0.6 % (0.0-5.0); HEMATOCRIT. 34.3 % (36.0-48.0); HEMOGLOBIN. 11.4 g/dL (12.0-16.0); LYMPHOCYTES % 49.2 % (20.0-50.0); MEAN CORPUSCULAR HEMOGLOBIN 28.6 pg (28.0-32.0); MEAN CORPUSCULAR VOLUME 86.2 fL (81.0-99.0); MEAN PLATELET VOLUME 8.8 fl (7.4-10.4); MONOCYTES % 2.9 % (2.0-8.0); NEUTROPHILS % 47.1 % (40.0-76.0); PLATELET 387 x1000/uL (130-400); RED BLOOD CELL COUNT 3.98 mill/uL (4.2-5.4); RED CELL DISTRIBUTION WIDTH 15.1 % (11.6-14.6)
[2022-08-29 08:25] LABS: CHLORIDE 108 mEq/L (98-107)
[2022-08-29] MEDS: INSULIN LISPRO 100 UNITS/ML SUBCUT SCH ×4 (08:31→21:05)
[2022-08-29] MEDS: ENOXAPARIN 40MG/0.4ML SYR SUBCUT SCH (08:31)
[2022-08-29 12:00] VITALS: BP 135/70
[2022-08-29] MEDS ORDERED: SODIUM CHLORIDE 3% FOR INH 4ML UD NEB INH NR (14:00)
[2022-08-29 16:00] VITALS: BP 134/70
[2022-08-29] MEDS: AMLODIPINE 5MG TABLET PO SCH (16:00)
[2022-08-29] MEDS ORDERED: ATEN-42 PO (17:06)
[2022-08-29] MEDS ORDERED: PIOG15TA68 PO (17:11)
[2022-08-29 20:01] VITALS: BP 129/76
[2022-08-29] MEDS: INSULIN GLARGINE 100 UNITS/ML SUBCUT SCH (21:07)
[2022-08-29] MEDS: ZOLPIDEM TARTRATE 5MG TABLET PO PRN (22:03)
[2022-08-30] VITALS: BP 161/79
[2022-08-30] MEDS: IPRATROPIUM/ALBUTEROL 0.5-3(2.5)MG/3ML NEB HHN SCH ×5 (00:27→20:49)
[2022-08-30] MEDS: ACETYLCYSTEINE 200MG/ML 20% VIAL 4ML INH SCH ×4 (00:28→22:00)
[2022-08-30 04:00] VITALS: BP 118/55
[2022-08-30] MEDS: BLOOD SUGAR DIAGNOSTIC STRIP TEST SCH ×4 (06:31→21:07)
[2022-08-30 07:45] LABS: HEMATOCRIT. 33.8 % (36.0-48.0); HEMOGLOBIN. 11.2 g/dL (12.0-16.0); MEAN CORPUSCULAR HEMOGLOBIN 28.6 pg (28.0-32.0); MEAN CORPUSCULAR VOLUME 86.2 fL (81.0-99.0); MEAN PLATELET VOLUME 8.8 fl (7.4-10.4); PLATELET 440 x1000/uL (130-400); RED BLOOD CELL COUNT 3.92 mill/uL (4.2-5.4); RED CELL DISTRIBUTION WIDTH 15.1 % (11.6-14.6)
[2022-08-30] MEDS: INSULIN LISPRO 100 UNITS/ML SUBCUT SCH ×4 (07:49→21:10)
[2022-08-30 07:56] LABS: CHLORIDE 109 mEq/L (98-107)
[2022-08-30 08:00] VITALS: BP 125/76
[2022-08-30 08:03] LABS: PHOSPHORUS 3.3 mg/dL (2.5-4.9)
[2022-08-30] MEDS: ENOXAPARIN 40MG/0.4ML SYR SUBCUT SCH (08:06)
[2022-08-30] MEDS: AMLODIPINE 5MG TABLET PO SCH (08:06)
[2022-08-30] MEDS ORDERED: POTASSIUM CHLORIDE 10MEQ TABLET SR PO NR (09:00)
[2022-08-30 12:00] VITALS: BP 113/72
[2022-08-30 14:03] LABS: PLATELET ESTIMATE INCREASED
[2022-08-30 16:00] VITALS: BP 124/74
[2022-08-30 20:00] VITALS: BP 149/75
[2022-08-30] MEDS: ZOLPIDEM TARTRATE 5MG TABLET PO PRN (20:58)
[2022-08-30] MEDS: INSULIN GLARGINE 100 UNITS/ML SUBCUT SCH (21:11)
[2022-08-31] VITALS: BP 134/71
[2022-08-31] MEDS: IPRATROPIUM/ALBUTEROL 0.5-3(2.5)MG/3ML NEB HHN SCH ×6 (00:55→21:51)
[2022-08-31] MEDS: BLOOD SUGAR DIAGNOSTIC STRIP TEST SCH ×4 (06:50→21:33)
[2022-08-31 07:14] LABS: BASOPHILS % 0.3 % (0.0-2.0); EOSINOPHILS % 0.3 % (0.0-5.0); HEMATOCRIT. 33.4 % (36.0-48.0); MEAN CORPUSCULAR HEMOGLOBIN 28.5 pg (28.0-32.0); MEAN CORPUSCULAR VOLUME 86.8 fL (81.0-99.0); MEAN PLATELET VOLUME 8.8 fl (7.4-10.4); MONOCYTES % 2.4 % (2.0-8.0); PLATELET 485 x1000/uL (130-400); RED BLOOD CELL COUNT 3.85 mill/uL (4.2-5.4); RED CELL DISTRIBUTION WIDTH 15.3 % (11.6-14.6)
[2022-08-31] MEDS: ACETYLCYSTEINE 200MG/ML 20% VIAL 4ML INH SCH ×2 (07:58→16:47)
[2022-08-31 08:00] VITALS: BP 132/77
[2022-08-31 08:05] LABS: CHLORIDE 111 mEq/L (98-107)
[2022-08-31] MEDS: ENOXAPARIN 40MG/0.4ML SYR SUBCUT SCH (08:36)
[2022-08-31] MEDS: INSULIN LISPRO 100 UNITS/ML SUBCUT SCH ×4 (08:37→21:33)
[2022-08-31] MEDS: AMLODIPINE 5MG TABLET PO SCH (08:38)
[2022-08-31] MEDS ORDERED: INSU100I28 SQ ×2 (11:43)
[2022-08-31 12:00] VITALS: BP 118/71
[2022-08-31 16:00] VITALS: BP 116/64
[2022-08-31 20:00] VITALS: BP 128/74
[2022-08-31] MEDS: ZOLPIDEM TARTRATE 5MG TABLET PO PRN (21:31)
[2022-08-31] MEDS: INSULIN GLARGINE 100 UNITS/ML SUBCUT SCH (21:32)
[2022-09-01] VITALS: BP 144/78
[2022-09-01] MEDS: ACETYLCYSTEINE 200MG/ML 20% VIAL 4ML INH SCH ×4 (00:50→20:29)
[2022-09-01] MEDS: IPRATROPIUM/ALBUTEROL 0.5-3(2.5)MG/3ML NEB HHN SCH ×6 (01:33→20:30)
[2022-09-01 03:59] VITALS: BP 123/68
[2022-09-01] MEDS: BLOOD SUGAR DIAGNOSTIC STRIP TEST SCH ×4 (06:50→21:39)
[2022-09-01 07:08] LABS: BASOPHILS % 0.4 % (0.0-2.0); EOSINOPHILS % 0.5 % (0.0-5.0); HEMATOCRIT. 33.5 % (36.0-48.0); LYMPHOCYTES % 57.2 % (20.0-50.0); MEAN CORPUSCULAR HEMOGLOBIN 28.6 pg (28.0-32.0); MEAN CORPUSCULAR VOLUME 87.3 fL (81.0-99.0); MEAN PLATELET VOLUME 8.5 fl (7.4-10.4); NEUTROPHILS % 38.9 % (40.0-76.0); PLATELET 530 x1000/uL (130-400); RED BLOOD CELL COUNT 3.84 mill/uL (4.2-5.4); RED CELL DISTRIBUTION WIDTH 15.5 % (11.6-14.6)
[2022-09-01 07:59] VITALS: BP 125/76
[2022-09-01 08:47] LABS: CHLORIDE 109 mEq/L (98-107)
[2022-09-01] MEDS: ENOXAPARIN 40MG/0.4ML SYR SUBCUT SCH (08:50)
[2022-09-01] MEDS: AMLODIPINE 5MG TABLET PO SCH (08:50)
[2022-09-01] MEDS: INSULIN LISPRO 100 UNITS/ML SUBCUT SCH ×4 (08:51→21:48)
[2022-09-01 12:00] VITALS: BP 131/51
[2022-09-01 16:00] VITALS: BP 118/70
[2022-09-01 19:51] VITALS: BP 127/68
[2022-09-01] MEDS: ZOLPIDEM TARTRATE 5MG TABLET PO PRN (21:47)
[2022-09-01] MEDS: INSULIN GLARGINE 100 UNITS/ML SUBCUT SCH (21:48)
[2022-09-02 00:03] VITALS: BP 124/68
[2022-09-02] MEDS: IPRATROPIUM/ALBUTEROL 0.5-3(2.5)MG/3ML NEB HHN SCH ×4 (00:50→17:05)
[2022-09-02 04:00] VITALS: BP 105/49
[2022-09-02] MEDS: ACETYLCYSTEINE 200MG/ML 20% VIAL 4ML INH SCH ×2 (05:15→17:05)
[2022-09-02] MEDS: BLOOD SUGAR DIAGNOSTIC STRIP TEST SCH ×4 (06:56→22:12)
[2022-09-02 07:08] LABS: BASOPHILS % 0.5 % (0.0-2.0); EOSINOPHILS % 0.4 % (0.0-5.0); HEMATOCRIT. 33.6 % (36.0-48.0); MEAN CORPUSCULAR HEMOGLOBIN 28.7 pg (28.0-32.0); MEAN CORPUSCULAR VOLUME 87.3 fL (81.0-99.0); MEAN PLATELET VOLUME 8.5 fl (7.4-10.4); MONOCYTES % 3.2 % (2.0-8.0); NEUTROPHILS % 34.9 % (40.0-76.0); PLATELET 532 x1000/uL (130-400); RED BLOOD CELL COUNT 3.84 mill/uL (4.2-5.4); RED CELL DISTRIBUTION WIDTH 15.6 % (11.6-14.6)
[2022-09-02 07:13] LABS: PROTHROMBIN TIME 10.7 sec (9.6-11.0)
[2022-09-02 07:47] LABS: CHLORIDE 110 mEq/L (98-107)
[2022-09-02 08:00] VITALS: BP 127/72
[2022-09-02] MEDS: ENOXAPARIN 40MG/0.4ML SYR SUBCUT SCH (08:03)
[2022-09-02] MEDS: INSULIN LISPRO 100 UNITS/ML SUBCUT SCH ×4 (08:57→22:21)
[2022-09-02] MEDS: AMLODIPINE 5MG TABLET PO SCH (08:57)
[2022-09-02 12:00] VITALS: BP 122/67
[2022-09-02 16:01] VITALS: BP 112/89
[2022-09-02 20:02] VITALS: BP 126/74
[2022-09-02] MEDS: INSULIN GLARGINE 100 UNITS/ML SUBCUT SCH (22:21)
[2022-09-03] VITALS (7 sets, daily range): BP systolic 111–151; BP diastolic 56–93
[2022-09-03] MEDS: BLOOD SUGAR DIAGNOSTIC STRIP TEST SCH ×3 (06:50→16:50)
[2022-09-03 07:02] LABS: HEMATOCRIT. 34.8 % (36.0-48.0); HEMOGLOBIN. 11.2 g/dL (12.0-16.0); MEAN CORPUSCULAR VOLUME 86.8 fL (81.0-99.0); MEAN PLATELET VOLUME 8.4 fl (7.4-10.4); PLATELET 538 x1000/uL (130-400); RED BLOOD CELL COUNT 4.01 mill/uL (4.2-5.4); RED CELL DISTRIBUTION WIDTH 15.3 % (11.6-14.6)
[2022-09-03] MEDS: AMLODIPINE 5MG TABLET PO SCH (08:22)
[2022-09-03] MEDS: ENOXAPARIN 40MG/0.4ML SYR SUBCUT SCH (08:22)
[2022-09-03] MEDS: INSULIN LISPRO 100 UNITS/ML SUBCUT SCH ×3 (08:24→17:05)
[2022-09-03] MEDS: IPRATROPIUM/ALBUTEROL 0.5-3(2.5)MG/3ML NEB HHN SCH ×3 (09:26→15:56)
[2022-09-03] MEDS: ACETYLCYSTEINE 200MG/ML 20% VIAL 4ML INH SCH (09:26)
[2022-09-03 10:00] LABS: CHLORIDE 106 mEq/L (98-107)
[2022-09-03 14:37] LABS: PLATELET ESTIMATE INCREASED
[2022-09-03] MEDS ORDERED: INSU100I28 SQ (18:55)
== END 2022-09-03 20:35 | disposition home health service (06) | DRG 720 ==
LOC: EDUNIT# 23:38 → ER 23:38 → EDBEDREQ 08-22 01:34 → ENRESERV 08-22 04:13 → CVICU 08-22 04:39 → 3WST 08-27 17:06
PROVIDERS: ADMIT Internal Medicine; ATTEND Internal Medicine
PROC: 5A1945Z Respiratory Ventilation, 24-96 Consecutive Hours (ICD-10-PCS; principal; 2022-08-22)
PROC: 0BH17EZ Insertion of Endotracheal Airway into Trachea, Via Natural or Artificial Opening (ICD-10-PCS; 2022-08-22)
PROC: 5A0935A Assistance with Respiratory Ventilation, Less than 24 Consecutive Hours, High Flow/Velocity Cannula (ICD-10-PCS; 2022-08-22)
PROC: 05H533Z Insertion of Infusion Device into Right Subclavian Vein, Percutaneous Approach (ICD-10-PCS; 2022-08-22)
PROC: B546ZZA Ultrasonography of Right Subclavian Vein, Guidance (ICD-10-PCS; 2022-08-22)
DX: A41.9 Sepsis, unspecified organism (principal); J96.01 Acute respiratory failure with hypoxia; R65.21 Severe sepsis with septic shock; G92.8 Other toxic encephalopathy; E43 Unspecified severe protein-calorie malnutrition; E11.10 Type 2 diabetes mellitus with ketoacidosis without coma; J18.9 Pneumonia, unspecified organism; N17.9 Acute kidney failure, unspecified; E87.0 Hyperosmolality and hypernatremia; E11.22 Type 2 diabetes mellitus with diabetic chronic kidney disease; E11.65 Type 2 diabetes mellitus with hyperglycemia; N18.9 Chronic kidney disease, unspecified; E87.6 Hypokalemia; J40 Bronchitis, not specified as acute or chronic; E78.5 Hyperlipidemia, unspecified; E87.1 Hypo-osmolality and hyponatremia; D63.1 Anemia in chronic kidney disease; K92.2 Gastrointestinal hemorrhage, unspecified; I12.9 Hypertensive chronic kidney disease with stage 1 through stage 4 chronic kidney disease, or unspecified chronic kidney disease; E86.1 Hypovolemia; F10.10 Alcohol abuse, uncomplicated; Z20.822 Contact with and (suspected) exposure to COVID-19; Z68.24 Body mass index [BMI] 24.0-24.9, adult; Z79.82 Long term (current) use of aspirin; Z79.899 Other long term (current) drug therapy; Z79.4 Long term (current) use of insulin; Z78.1 Physical restraint status; Z87.891 Personal history of nicotine dependence
CPT/HCPCS: 31500; 36415; 36573; 36600; 71045; 74018; 74176; 76604; 80048; 80053; 80061; 80202; 80305; 80320; 81003; 82010; 82270; 82375; 82550; 82805; 82962; 83036; 83605; 83615; 83735; 83880; 84100; 84145; 84478; 84484; 85025; 85027; 85044; 86850; 86900; 87070; 87106; 87426; 87804; 92610; 92950; 93005; 94003; 94640; 94660; 94667; 97110; 97116; 97161; 97164; 97166; 97530; 99285; A6261; C1725; C9113; C9803; J0456; J1650; J1815; J2248; J2250; J2405; J2543; J2704; J2765; J3010; J3370; J3475; J3480; J3490; J7030; J7050; J7060; J7070; J7608; A4315; G0480